=== PATIENT | male | born 1955 | race Caucasian/White ===

== ENCOUNTER 2019-10-24 06:45 | Outpatient (CLI) | payer MEDICARE, SELFPAY ==
--- NOTE | ~2019-10-24 | CT_ITS ---
EXAMINATION: CT abdomen pelvis w con DATE: 10/24/2019 07:26 INDICATION: Abdominal and pelvic mass, swelling TECHNIQUE: Computed tomography (CT) of the abdomen and pelvis was performed with 100 cc Omnipaque 350 intravenous contrast. Automated exposure control and iterative reconstruction technique were employe d. Exam dose: 633.08 mGy-cm total exam DLP. COMPARISON: None. FINDINGS: The lung bases are clear. Normal heart size. No pericardial or pleural effusion. There is diffuse hepatic steatosis. Normal splenic size. Calcified splenic granulomas consistent with old granulomatous disease. No hepatic or splenic or pancreatic space-occupying mass lesion is eviden t. Normal morphology of the adrenal glands. No renal mass lesion. No urinary tract calculus or hydroureteronephrosis. There is prostate enlargeme nt and calcification and moderate diffuse thickening of the urinary bladder. The bladder is relativel y evacuated. Normal caliber and atherosclerotic calcification of the abdominal aorta. There is atherosclerotic marco a cification at the origins of both renal arteries and at the origin of the celiac trunk. No intraperit mcgovern or retroperitoneal or pelvic mass lesion or adenopathy or ascites. Normal appendix. There are multiple diverticula of the left and right colon; no CT evidence of divert iculitis. No bowel obstruction, bowel wall thickening, pneumatosis or intraperitoneal free air. Bilateral fat-containing inguinal hernias. Status post bilateral posterior and interbody spinal fusion at L4-5. IMPRESSION: Diffuse hepatic steatosis Prostate enlargement and calcification Diverticulosis of the colon Bilateral fat-containing inguinal hernias Status post posterior and interbody spinal fusion at L4-5 Reviewed, dictated and finalized at [facility]. Reviewed, dictated and finalized at [facility]. TION CLERK
[2019-10-24 07:20] LABS: Blood Urea Nitrogen 13 mg/dL (8-26); Estimated Glomerular Filt Rate > 60
== END 2019-10-24 06:46 | disposition home or self-care (01) ==
PROVIDERS: Visit Provider Internal Medicine
DX: J44.1 Chronic obstructive pulmonary disease with (acute) exacerbation (principal); R19.00 Intra-abdominal and pelvic swelling, mass and lump, unspecified site; Z98.1 Arthrodesis status; K57.30 Diverticulosis of large intestine without perforation or abscess without bleeding; K76.0 Fatty (change of) liver, not elsewhere classified; K40.20 Bilateral inguinal hernia, without obstruction or gangrene, not specified as recurrent
CPT/HCPCS: 74177; Q9967

== ENCOUNTER 2025-07-03 13:05 | Outpatient (CLI) | payer MEDICARE, SELFPAY ==
--- NOTE | ~2025-07-03 | MR_ITS ---
EXAMINATION: MR hip LT wo con DATE: 07/03/2025 14:33 INDICATION: Left hip pain TECHNIQUE: Magnetic resonance imaging (MRI) of the left hip was performed without intravenous contrast. Sequences included full-field axial PD-weighted FS FSE and T1-weighted FSE, coronal of the pelvis with PD-weighted FS FSE, T2- weighted FSE and T1-weighted FSE, small field of view of the left hip with axial PD-weighted FS FSE, sagittal PD-weighted FS FSE, coronal PD-weighted FS FSE and coronal T2 weighted FSE. Additional radial T1-weighted FGR oriented orthogonal to the acetabular rim were obtained for evaluation of the labrum. COMPARISON: None FINDINGS: Bones/labrum/cartilage: Combined instrumented L4-L5 anterior and posterior spinal fusion with metallic magnetic field artifact associated with interbody bone graft cage and bilateral vertical elieser and pedicle screw fixation. L5 is transitional, partially sacralized on the left. Alignment is normal. No fracture, avascular necrosis or pathologic marrow replacing process. Moderate to severe osteoarthritis at the left hip with full/near full-thickness cartilage loss at the superolateral aspect the joint space. There is mild subarticular edema-like signal change along the superolateral aspect of the acetabulum with mild cystic change at the base of the labrum. There is a chronic degeneration of the left acetabular labrum which is been partially replaced by small marginal osteophytes along the rim of the acetabulum. Moderate osteoarthritis and similar ossification of the right acetabular labrum on the larger [id number] images. Fluid: Symmetric physiologic amount of fluid within both hip joints. Soft tissues: Normal and symmetric muscle bulk and signal in the pelvis and visualized proximal thighs. The iliopsoas, gluteal and proximal hamstring tendons are normal. Small right and moderate-sized left fat-containing inguinal hernias. Mild diverticulosis along the sigmoid colon without adjacent from trace strand ing to suggest diverticulitis. Normal appendix. Bladder is unremarkable. Mild prostatomegaly measuring 4.0 x 3.3 cm. No pathologically enlarged pelvic/inguinal lymphadenopathy. IMPRESSION: 1. 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 2. Small right-sided and moderate sized left-sided fat-containing inguinal hernias. 3. Combined instrumented L4-L5 anterior and posterior spinal fusion. Reviewed, dictated and finalized at [facility]. IMPRESSION: 1. 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 2. Small right-sided and moderate sized left-sided fat-containing inguinal farhan ias. 3. Combined instrumented L4-L5 anterior and posterior spinal fusion.
--- NOTE | ~2025-07-03 | MR_ITS ---
EXAMINATION: MR lumbar spine wo con DATE: 07/03/2025 14:17 INDICATION: Low back pain. TECHNIQUE: Magnetic resonance imaging (MRI) of the lumbar spine was performed without intravenous contrast. COMPARISON: Chest 2 views 10/09/2019 FINDINGS: S1 is a transitional segment. There is 4 degrees dextrocurvature of lumbar spine. There is mild chronic anterior wedging of L1 and L2 vertebral bodies. There are changes of anterior and posterior fusion procedures at L5-S1 with interbody device and ankle series. There is mildly decreased disc height at L1-L2, L2-L3, L3-L4, and L4-L5. The distal spinal cord signal intensity is normal. The conus medullaris is at L1. The following disc levels are specifically discussed: L1-L2: There is a right central extrusion. There is mild bilateral facet joint osteoarthritis. There is no neural foraminal stenosis. There is mild central canal stenosis. L2-L3: The disc is bulging. There is mild bilateral facet joint osteoarthritis. There is mild bilateral neural foraminal stenosis. There is mild central canal stenosis. L3-L4: The disc is bulging. There is moderate bilateral facet joint osteoarthritis. There is mild bilateral neural foraminal stenosis. There is no central canal stenosis. L4-L5: The disc is bulging with superimposed left subarticular zone extrusion. There is severe bilateral facet joint osteoarthritis. There is moderate bilateral neural foraminal stenosis. There is moderate central canal stenosis. There is severe stenosis of left lateral recess. L5-S1: There is no facet joint hypertrophy. There is moderate neural foraminal stenosis. There is no central canal stenosis. There is posterior decompression. IMPRESSION: 1. Severe spondylosis at L4-L5 and mild spondylosis at other levels. 2. Anterior and posterior fusion procedures at L5-S1. Reviewed, dictated and finalized at location [facility].
== END 2025-07-03 13:06 | disposition home or self-care (01) ==
LOC: MICIMG 13:09
PROVIDERS: Visit Provider Orthopaedic Surgery Orthopaedic Surgery of the Spine
DX: M47.816 Spondylosis without myelopathy or radiculopathy, lumbar region (principal); M16.0 Bilateral primary osteoarthritis of hip; K40.90 Unilateral inguinal hernia, without obstruction or gangrene, not specified as recurrent; Z98.1 Arthrodesis status
CPT/HCPCS: 72148; 73721